=== PATIENT | male | born 2000 | race Caucasian/White ===

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

== ENCOUNTER 2018-01-23 22:19 | Emergency (ER) | payer OTHER ==
[2018-01-23 22:24] VITALS: BP 109/71; PULSE 82; RESP 18; TEMP 97.8
[2018-01-23] MEDS ORDERED: KETOROLAC 30 MG/ML 1 ML VIAL IM STA (22:33)
[2018-01-23] MEDS ORDERED: CYCLOBENZAPRINE 5 MG TAB PO STA (22:33)
--- NOTE | 2018-01-23 22:50 | ED ---
Back Pain HPI - General Chief Complaint: Back Pain/Injury Stated Complaint: Back pain Time Seen by Provider: 01/23/18 22:33 Source: patient Limitations: no limitations - History of Present Illness Initial Comments: This is a 17-year-old male with no past medical history who presents today for chief complaint of mid back pain. 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 Pt states he immediately noticed pain in the mid right back without radiation, he also noted a feeling of tightness. Pt was able to continue to work,and denied any radiation of pain to UE/LE, numbness , tingling, paresthesias, loss sensation of the upper or lower extremities, ataxia or muscle weakness. However the as the day progressed he noticed that he felt as though he had a knot in the right mid back and it was painful with ROM. He was told he needed to come to the ER by his work. Pt did not ice or take any pain medication prior to arrival in the ED. Upon presentation pt VS stable. Patient denies any IVDU, recent weight loss, night sweats, recent fever , chills, shortness of breath, chest pain, back pain, abdominal pain, nausea or vomiting, numbness or tingling, dysuria, urgency, frequency or hematuria, constipation or diarrhea, headaches or visual changes, or any other complaints. - Related Data Previous Rx's Medication Instructions Recorded Cyclobenzaprine [Flexeril] 5 mg PO HS 4 Days #4 tab 01/23/18 Ibuprofen [Motrin] 800 mg PO Q8H PRN 7 Days #21 tab 01/23/18 Allergies Allergy/AdvReac Type Severity Reaction Status Date / Time No Known Allergies Allergy Verified 01/23/18 22:24 Review of Systems ROS Statement: Those systems with pertinent positive or pertinent negative responses have been documented in the HPI. ROS Other: All systems not noted in ROS Statement are negative. Constitutional: Denies: fever, chills Respiratory: Denies: cough, wheezes, hemoptysis Cardiovascular: Denies: chest pain, palpitations, edema Gastrointestinal: Denies: abdominal pain, nausea, vomiting, diarrhea, constipation Genitourinary: Denies: urgency, dysuria, frequency, hematuria, testicular pain Musculoskeletal: Reports: as per HPI, back pain, myalgia. Denies: joint swelling, arthralgia Skin: Denies: as per HPI, rash, lesions Neurological: Denies: headache, weakness, numbness, paresthesias, confusion, abnormal gait Past Medical History Past Medical History: Asthma Additional Past Medical History / Comment(s): childhood asthma History of Any Multi-Drug Resistant Organisms: None Reported Past Surgical History: Orthopedic Surgery Additional Past Surgical History / Comment(s): right knee Past Psychological History: Depression Smoking Status: Former smoker Past Alcohol Use History: None Reported Past Drug Use History: None Reported General Exam - General Exam Comments Initial Comments: General: The patient is awake and alert, in no distress, and does not appear acutely ill. Eye: Pupils are equal, round and reactive to light, extra-ocular movements are intact. No nystagmus. There is normal conjunctiva bilaterally. No signs of icterus. Ears, nose, mouth and throat: There are moist mucous membranes and no oral lesions. Neck: The neck is supple, there is no tenderness or JVD. Cardiovascular: There is a regular rate and rhythm. No murmur, rub or gallop is appreciated. Respiratory: Lungs are clear to auscultation, respirations are non-labored, breath sounds are equal. No wheezes, stridor, rales, or rhonchi. Gastrointestinal: [Soft, non-distended, non-tender abdomen without masses or organomegaly noted. There is no rebound or guarding present. No CVA tenderness. Bowel sounds are unremarkable.] Musculoskeletal: No rashes or lesions of the overlying skin. Palpable tension in the right side of latissimus dorsi muscle. No midline tenderness to palpation of the spine from cervical to lumbar. No paravertebral tenderness of the vertebral column, Normal ROM with flexion, hyperextension and lateral flexion of the spine, with mild tenderness with all actions. Strength 5/5 of the spine. Sensation intact of the UE/LE equally b/l, no saddle parathesias. Radial and DP pulses equal bilaterally 2+. Pt able to heel and toe walk without difficulty. Non-ataxic gait. +2 DTR of the triceps, bracioradialis, patellar and achilles. No evidence of fasiculations or myoclonus. Neurological: A&O x 3. CN II-XII intact, There are no obvious motor or sensory deficits. Coordination appears grossly intact. Speech is normal. Skin: Skin is warm and dry and no rashes or lesions are noted. Psychiatric: Cooperative, appropriate mood & affect, normal judgment. Limitations: no limitations Course Vital Signs 01/23/18 22:22 Temperature 97.8 F Pulse Rate 82 Respiratory 18 Rate Blood Pressure 109/71 O2 Sat by Pulse 98 Oximetry Medical Decision Making - Medical Decision Making 17 yo male who presents today for cc of mid thoracic back pain concerning for back strain. Pt denies any midline or paravertebral tenderness to palpation/ percussion of the vertebral column. Pt did have tenderness to palpation of the right mid latissimus dorsi muscle.. Neurovascular exam intact. Pt was complaining of tight feeling. Neurovascular exam unremarkabe. Denies any urinary symptoms, CP , shortness of breath- given PMH and history I have low suspicion for renal or cardiovasular cause for LBP. Imaging was discussed with pt at this time pt feels this is a back strain and deferred further imagining. Given physical exam findings and history I have low suspicion for pathologic or traumatic fracture of the vertebrae. Pt was given flexerill 5mg and a 30mg IM inj of Toradol for pain mgmt. Upon reevaluation pt states that this was helping. Prior to administration pt states he was getting a ride home from girlfriend and would not be driving. Case was discussed with Dr. Jane, at this time we feel the pain is due to back strain, pt was given RX for flexeril and ibuprofen 800mg. 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 Pt agreed. Pt is to f/u with PCP in 1-2 days and return to ER for change or worsening symptoms. Pt was educated on signs of spinal cord compromise. Pt agreed with plan and was d/c in stable condition. Disposition Clinical Impression: Strain of mid-back, Back pain Disposition: HOME SELF-CARE Condition: Good Instructions: Thoracic Back Strain (ED) Additional Instructions: Please use medication as discussed. Please follow-up with family doctor in the next 2 days of symptoms have not improved. Please return to emergency room if the symptoms increase or worsen or for any other concerns. Prescriptions: Cyclobenzaprine [Flexeril] 5 mg PO HS 4 Days #4 tab Ibuprofen [Motrin] 800 mg PO Q8H PRN 7 Days #21 tab PRN Reason: Pain Is patient prescribed a controlled substance at d/c from ED?: No Referrals: Emeka Jackson DO [Primary Care Provider] - 1-2 days Time of Disposition: 22:55
== END 2018-01-23 23:00 | disposition home or self-care (01) ==
LOC: EC 22:19
DX: S29.012A Strain of muscle and tendon of back wall of thorax, initial encounter (principal); Z87.891 Personal history of nicotine dependence; X50.1XXA Overexertion from prolonged static or awkward postures, initial encounter; Y93.89 Activity, other specified; Y92.69 Other specified industrial and construction area as the place of occurrence of the external cause; Y99.0 Civilian activity done for income or pay
CPT/HCPCS: 99283; 96372; J1885

== ENCOUNTER 2020-01-17 15:51 | Emergency (ER) | payer OTHER ==
[2020-01-17 15:56] VITALS: RESP 16
--- NOTE | 2020-01-17 16:05 | ED ---
General Adult HPI - General Chief complaint: Upper Respiratory Infection Stated complaint: Cough,covid test Time Seen by Provider: 01/17/20 15:55 Source: patient, RN notes reviewed, old records reviewed Mode of arrival: ambulatory Limitations: no limitations - History of Present Illness Initial comments: This is a 19-year-old male who presents emergency Department stating he was asked by his work to come in and get checked for COVID because he's had a cough for 3 days and had a runny nose. Patient states she also had a fever vomited 0.0 yesterday. Patient denies any headache patient denies numbness weakness. Patient denies shortness of breath. Patient denies any palpitation. Patient denies bowel pain patient denies nausea vomiting or diarrhea. - Related Data Previous Rx's Medication Instructions Recorded Cyclobenzaprine [Flexeril] 5 mg PO HS 4 Days #4 tab 01/23/18 Ibuprofen [Motrin] 800 mg PO Q8H PRN 7 Days #21 tab 01/23/18 Allergies Allergy/AdvReac Type Severity Reaction Status Date / Time No Known Allergies Allergy Verified 01/17/20 15:56 Review of Systems ROS Statement: Those systems with pertinent positive or pertinent negative responses have been documented in the HPI. ROS Other: All systems not noted in ROS Statement are negative. Past Medical History Past Medical History: Asthma Additional Past Medical History / Comment(s): childhood asthma History of Any Multi-Drug Resistant Organisms: None Reported Past Surgical History: Orthopedic Surgery Additional Past Surgical History / Comment(s): right knee Past Psychological History: Depression Smoking Status: Never smoker Past Alcohol Use History: Occasional Past Drug Use History: None Reported General Exam - General Exam Comments Initial Comments: GENERAL: Patient is well-developed and well-nourished. Patient is nontoxic and well- hydrated and is in no acute distress. ENT: Neck is soft and supple. No significant lymphadenopathy is noted. Oropharynx is clear. Moist mucous membranes. Neck has full range of motion without eliciting any pain. EYES: The sclera were anicteric and conjunctiva were pink and moist. Extraocular movements were intact and pupils were equal round and reactive to light. Eyelids were unremarkable. PULMONARY: Unlabored respirations. Good breath sounds bilaterally. No audible rales rhonchi or wheezing was noted. CARDIOVASCULAR: There is a regular rate and rhythm without any murmurs gallops or rubs. ABDOMEN: Soft and nontender with normal bowel sounds. SKIN: Skin is clear with no lesions or rashes and otherwise unremarkable. NEUROLOGIC: Patient is alert and oriented x3. Cranial nerves II through XII are grossly intact. Motor and sensory are also intact. Normal speech, volume and content. Symmetrical smile. MUSCULOSKELETAL: Normal extremities with adequate strength and full range of motion. LYMPHATICS: No significant lymphadenopathy is noted PSYCHIATRIC: Normal psychiatric evaluation. Limitations: no limitations Course Vital Signs 01/17/20 15:52 Temperature 98.6 F Pulse Rate 67 Respiratory 16 Rate Blood Pressure 111/78 O2 Sat by Pulse 98 Oximetry Medical Decision Making - Medical Decision Making Chest x-ray is normal. Disposition Clinical Impression: Upper respiratory tract infection Disposition: HOME SELF-CARE Condition: Good Instructions (If sedation given, give patient instructions): Upper Respiratory Infection (ED) Is patient prescribed a controlled substance at d/c from ED?: No Referrals: None,Stated [Primary Care Provider] - 1-2 days Time of Disposition: 16:05
[2020-01-17 16:12] VITALS: BP 127/76; PULSE 62; TEMP 98.2
--- NOTE | 2020-01-17 16:22 | XR ---
EXAMINATION TYPE: XR chest 2V DATE OF EXAM: 01/17/2020 COMPARISON: Prior chest x-ray 05/01/2014 HISTORY: Difficulty breathing TECHNIQUE: Frontal and lateral views of the chest are obtained. FINDINGS: There is no focal air space opacity, pleural effusion, or pneumothorax seen. The cardiac silhouette size is within normal limits. The osseous structures are intact. Prominent lung volume m ay be indicative of underlying COPD. IMPRESSION: No acute cardiopulmonary process.
== END 2020-01-17 16:20 | disposition home or self-care (01) ==
LOC: EC 15:51
DX: J06.9 Acute upper respiratory infection, unspecified (principal); Z20.828 Contact with and (suspected) exposure to other viral communicable diseases
CPT/HCPCS: 71046; 99284; U0003

== ENCOUNTER 2020-01-20 14:00 | Emergency (ER) | payer OTHER ==
[2020-01-20 14:14] VITALS: BP 126/83; PULSE 68; RESP 18; TEMP 98
[2020-01-20] MEDS ORDERED: LIDOCAINE 1% INJ 10MG/ML (20 ML MDV) SQ ONE (14:21)
--- NOTE | 2020-01-20 14:25 | ED ---
Wound/Laceration HPI - General Chief Complaint: Wound/Laceration Stated Complaint: [facility] - hand lac Source: patient, EMS Mode of arrival: ambulatory Limitations: no limitations - History of Present Illness Initial Comments: She is a 19-year-old male presenting to the emergency department with a chief complaint of a laceration. Patient brought to the ED via EMS. Patient states t his occurred while he was awake about one hour prior to arrival. 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 Patient reports there was some active bleeding at the time of injury which has since resolved. Patient states tetanus is up-to-date. States he has full range of motion in the thumb. Denies any numbness or tingling. States the pain is minimal at this time. - Related Data Previous Rx's Medication Instructions Recorded Cyclobenzaprine [Flexeril] 5 mg PO HS 4 Days #4 tab 01/23/18 Ibuprofen [Motrin] 800 mg PO Q8H PRN 7 Days #21 tab 01/23/18 Allergies Allergy/AdvReac Type Severity Reaction Status Date / Time No Known Allergies Allergy Verified 01/20/20 14:14 Review of Systems ROS Statement: Those systems with pertinent positive or pertinent negative responses have been documented in the HPI. ROS Other: All systems not noted in ROS Statement are negative. Past Medical History Past Medical History: Asthma, Seizure Disorder Additional Past Medical History / Comment(s): childhood asthma History of Any Multi-Drug Resistant Organisms: None Reported Past Surgical History: Orthopedic Surgery Additional Past Surgical History / Comment(s): right knee Past Psychological History: Depression Smoking Status: Never smoker Past Alcohol Use History: Occasional Past Drug Use History: None Reported General Exam Limitations: no limitations General appearance: alert, in no apparent distress Head exam: Present: atraumatic, normocephalic, normal inspection Eye exam: Present: normal appearance, PERRL, EOMI Pupils: Present: normal accommodation ENT exam: Present: normal exam, normal oropharynx, mucous membranes moist, TM's normal bilaterally, normal external ear exam Neck exam: Present: normal inspection, full ROM. Absent: tenderness Respiratory exam: Present: normal lung sounds bilaterally. Absent: respiratory distress, wheezes, rales Cardiovascular Exam: Present: regular rate, normal rhythm, normal heart sounds Extremities exam: Present: full ROM, normal capillary refill, other (+2 ulnar and radial pulses bilaterally. Sensation intact In the left thumb.). Absent: normal inspection (1 cm laceration on the palmar aspect of the left thumb.), tenderness Back exam: Present: normal inspection, full ROM. Absent: tenderness Neurological exam: Present: alert, oriented X3 Psychiatric exam: Present: normal affect, normal mood Skin exam: Present: warm, dry, intact, normal color Course Vital Signs 01/20/20 14:02 Temperature 98.0 F Pulse Rate 68 Respiratory 18 Rate Blood Pressure 126/83 O2 Sat by Pulse 96 Oximetry Medical Decision Making - Medical Decision Making Patient is 19-year-old male presenting to emergency Department with a chief complaint of laceration. Laceration to the left thumb. Patient has full range of motion of thumb. Sensation intact. Laceration site thoroughly irrigated and repaired with 2 sutures. Patient tolerated procedure well. He was advised to return in 7 days for removal. Return parameters discussed. Case discussed physician. Disposition Clinical Impression: Laceration Disposition: HOME SELF-CARE Condition: Stable Instructions (If sedation given, give patient instructions): Care For Your Stitches (DC), Laceration (DC) Additional Instructions: Return to emergency department in 7 days for suture removal. Is patient prescribed a controlled substance at d/c from ED?: No Referrals: Emeka Jackson DO [Primary Care Provider] - 1-2 days Time of Disposition: 15:11
== END 2020-01-20 15:21 | disposition home or self-care (01) ==
LOC: EC 14:00
DX: S61.012A Laceration without foreign body of left thumb without damage to nail, initial encounter (principal); W26.8XXA Contact with other sharp object(s), not elsewhere classified, initial encounter; Y93.89 Activity, other specified; Y92.69 Other specified industrial and construction area as the place of occurrence of the external cause; Y99.0 Civilian activity done for income or pay
CPT/HCPCS: 99283; 12001; J2001

== ENCOUNTER 2021-08-21 22:30 | Emergency (ER) | payer SELFPAY ==
--- NOTE | 2021-08-22 00:17 | XR ---
EXAMINATION TYPE: XR chest 2V DATE OF EXAM: 08/21/2021 COMPARISON: 01/17/2020 HISTORY: Cough TECHNIQUE: FINDINGS: Heart and mediastinum are normal. Lungs are clear. Diaphragm is normal. Bony thorax appears normal. IMPRESSION: Normal chest. No change.
--- NOTE | 2021-08-22 01:29 | ED ---
General Adult HPI - General Chief complaint: Upper Respiratory Infection Stated complaint: Cough Time Seen by Provider: 08/22/21 01:20 Source: patient, RN notes reviewed Mode of arrival: ambulatory Limitations: no limitations - History of Present Illness Initial comments: 21-year-old male presents to the emergency department for evaluation of congested cough, nasal drainage, and sinus pressure, onset 3-4 days prior to arrival. Patient states he has been coughing up phlegm and does have nasal drainage. Reports loss of appetite. States he has not taken anything to treat his symptoms prior to arrival. Denies fever, chills, chest pain, tightness in his chest, difficulty breathing, abdominal pain, nausea, vomiting, diarrhea, or dysuria. - Related Data Previous Rx's Medication Instructions Recorded Cyclobenzaprine [Flexeril] 5 mg PO HS 4 Days #4 tab 01/23/18 Ibuprofen [Motrin] 800 mg PO Q8H PRN 7 Days #21 tab 01/23/18 Fluticasone Nasal [place] [Flonase 2 spr EA NOSTRIL DAILY 10 Days #16 08/22/21 Nasal [place]] gm guaiFENesin-DM 600/30MG [Mucinex 1 tab PO Q12HR #14 tab 08/22/21 Dm] Allergies Allergy/AdvReac Type Severity Reaction Status Date / Time No Known Allergies Allergy Verified 08/21/21 22:48 Review of Systems ROS Statement: Those systems with pertinent positive or pertinent negative responses have been documented in the HPI. ROS Other: All systems not noted in ROS Statement are negative. Past Medical History Past Medical History: Asthma, Seizure Disorder Additional Past Medical History / Comment(s): childhood asthma History of Any Multi-Drug Resistant Organisms: None Reported Past Surgical History: Orthopedic Surgery Additional Past Surgical History / Comment(s): right knee Past Psychological History: Depression Smoking Status: Never smoker Past Alcohol Use History: Occasional Past Drug Use History: None Reported General Exam Limitations: no limitations (Lungs developed, well-nourished male in no acute distress. Initial temperature 98.0, pulse 90, respirations 18, blood pressure 125/83, pulse ox 98% on room air.) General appearance: alert, in no apparent distress ENT exam: Present: normal exam, normal oropharynx, mucous membranes moist, TM's normal bilaterally, other (frontal and maxillary sinus tenderness upon palpatio n) Expanded Throat exam: normal inspection. negative: tonsillar erythema, tonsillomegaly, tonsillar exudate Neck exam: Present: normal inspection, full ROM. Absent: tenderness, meningismus, lymphadenopathy Respiratory exam: Present: normal lung sounds bilaterally. Absent: respiratory distress, wheezes, rales, rhonchi, stridor, chest wall tenderness Cardiovascular Exam: Present: regular rate, normal rhythm, normal heart sounds. Absent: systolic murmur, diastolic murmur, rubs, gallop, clicks GI/Abdominal exam: Present: soft, normal bowel sounds. Absent: distended, tenderness, guarding, rebound, rigid Neurological exam: Present: alert, oriented X3, CN II-XII intact Psychiatric exam: Present: normal affect, normal mood Course Vital Signs 08/21/21 08/22/21 22:43 02:24 Temperature 98.0 F 98.1 F Pulse Rate 90 63 Respiratory 18 16 Rate Blood Pressure 125/83 110/77 O2 Sat by Pulse 98 95 Oximetry Medical Decision Making - Medical Decision Making This is a 21-year-old male with a past medical history of asthma and seizure disorder who presents to the emergency Department with complaints of congested cough and nasal drainage 3-4 days. Upon exam, patient is well-appearing and in no acute distress. Vital signs are stable, patient is afebrile. Physical exam findings are significant for sinus tenderness and thin, clear nasal drainage. Nasal mucosa mildly erythematous and edematous. Occasional congested cough noted. Remainder of physical exam is unremarkable. Covid test is negative. Chest x-ray shows no acute process. Patient will be prescribed decongestant and nasal spray as first line treatment for rhinosinusitis. Advised to return or follow up with PCP if symptoms persist beyond 3 weeks or if he develops any facial swelling. Patient verbalizes understanding and agrees with this plan. This patient's care was discussed with my attending, Dr. Jane. - Lab Data Lab Results 08/21/21 Range/Units 23:19 Coronavirus (PCR) Not Detected (Not Detectd) - Radiology Data Radiology results: report reviewed, image reviewed Two-view chest x-ray was obtained. Report was reviewed in its entirety. Impression per Dr. Méndez is normal chest. No change. Disposition Clinical Impression: Viral URI with cough Disposition: HOME SELF-CARE Condition: Stable Instructions (If sedation given, give patient instructions): Cold Symptoms (ED) Additional Instructions: Take Mucinex twice daily while symptoms persist. Use nasal spray daily for the next 7-10 days; then use as needed after that. Utilize humidifier or vaporizer. Consider applying warm compress to face for relief of sinus pressure. Follow-up with your PCP for a recheck. Return to the emergency department with any new, worsening, or concerning symptoms. Prescriptions: Fluticasone Nasal [place] [Flonase Nasal [place]] 2 spr EA NOSTRIL DAILY 10 Days #16 gm guaiFENesin-DM 600/30MG [Mucinex Dm] 1 tab PO Q12HR #14 tab Is patient prescribed a controlled substance at d/c from ED?: No Referrals: None,Stated [Primary Care Provider] - 1-2 days Time of Disposition: 02:00
[2021-08-22] MEDS ORDERED: guaiFENesin-DM 600/30MG 1 EACH TAB.ER.12H PO STA (01:54)
[2021-08-22 02:26] VITALS: BP 110/77; PULSE 63; RESP 16; TEMP 98.1
== END 2021-08-22 02:24 | disposition home or self-care (01) ==
LOC: EC 22:30
DX: J06.9 Acute upper respiratory infection, unspecified (principal); J45.909 Unspecified asthma, uncomplicated; F32.A Depression, unspecified; Z20.822 Contact with and (suspected) exposure to COVID-19
CPT/HCPCS: 71046; 87635; 99283